=== PATIENT | male | born 1965 | race Caucasian/White ===

== ENCOUNTER → 2019-05-06 06:28 | Day surgery (SDC) | payer BC ==
[~2019-05-06 06:28] MED LIST: Atracurium* 10 MG/ML 10 ML VIAL ONE; Buffered Lidocaine 1% SYRIN* 1 ML/SYRINGE INTRADERM ONE; Bupivacaine 0.5% W/EPI SDV* 10 ML VIAL INJ ONE; Dexamethasone IV* 4 MG/ML 1 ML (4 MG) IV SLOW PU ONE; Dexamethasone IV* 4 MG/ML 1 ML (4 MG) ONE; DiMENhydriNATE IV* 50 MG/ML VIAL IV PUSH PRN; Famotidine IV* 10 MG/ML 2 ML (20 mg) IV ONE; Famotidine IV* 10 MG/ML 2 ML (20 mg) ONE; HYDROmorphone INJ1* 1 MG/ML SYRINGE ONE; Ketorolac INJ* 30 MG/ML 1 ML VIAL ONE; Lactated Ringers 1000 ML Bag* 1,000 ML IV SCH; Lidocaine 2% PF * 5 ML VIAL ONE; Midazolam* 1 MG/ML 5 ML VIAL (5 MG) ONE; Naloxone* 0.4 MG/ML 1 ML VIAL IV PRN; Ondansetron INJ* 2 MG/ML VIAL IV PRN; Ondansetron INJ* 2 MG/ML VIAL ONE; Phenylephrine 10 MG/ML VIAL* 1 ML VIAL ONE; Propofol* 10 MG/ML 20 ML BTL ONE; ceFAZolin 2 GM in NS PREMIX(*) 2 GM/100 ML BAG IVPB ONE; fentaNYL* 50 MCG/ML 2 ML VIAL (100 MCG VIAL) ONE; fentaNYL* 50 MCG/ML 5 ML VIAL (250 MCG VIAL) ONE; oxyCODONE/Acetamin 5/325 MG* TAB ONE
[2019-05-06] MEDS: HYDROmorphone INJ1* 1 MG/ML SYRINGE IV PRN ×5 (11:40→12:00)
[2019-05-06] MEDS: oxyCODONE/Acetamin 5/325 MG* TAB PO PRN ×2 (11:42→11:59)
[2019-05-06] MEDS: fentaNYL* 50 MCG/ML 2 ML VIAL (100 MCG VIAL) IV PRN ×3 (12:10→12:33)
[2019-05-06 13:08] VITALS: BP 135/80
--- NOTE | 2019-05-07 15:59 | OP ---
OPERATIVE REPORT: DATE OF OPERATION: 05/06/19 DATE OF : 67 SURGEON: Benigno Lundberg MD TRY ON BASTER: DANIS Robles A physician community program assistant was required for the length of the procedure for assistance with patient positi oning, retraction, instrumentation, and closure. ANESTHESIOLOGIST: Dr. Rios. ANESTHESIA: General anesthesia, local anesthesia with 20 cc of Marcaine 0.5% with epinephrine. PRE-OP DIAGNOSIS: Left elbow triceps tendon tear. POST-OP DIAGNOSIS: Left elbow triceps tendon tear. OPERATIVE PROCEDURE: Open repair of left elbow distal triceps tendon tear. ANTIBIOTICS: Ancef 2 g IV. IV FLUIDS: 2000 cc of crystalloid. BCDO-XP-TAKI TIME: 85 minutes. This was longer than average because of the tightness of this patien t's repair. TOURNIQUET TIME: 87 minutes left upper arm tourniquet at 250 mmHg. SPECIMENS: None. IMPLANTS: Mitek Gryphon double loaded suture anchors x2. COMPLICATIONS: None. ESTIMATED BLOOD LOSS: Minimal. IMAGING: None. INDICATIONS FOR PROCEDURE: The patient is a 53-year-old man, avid weightlifter, who injured his left elbow playing volleyball on 04/11/19, almost 1 month preoperatively. The patient saw several doctors and eventually arrived to my clinic. MRI showed a high-grade tear of the left elbow triceps tendon and the patient opted for surgery. The patient and I discussed risks and potential complications of surgery. We discussed much of the a natomy of the triceps as well as the surgery, technical aspects of it. We spoke about postoperative recovery and limitations and timeline of recovery. DESCRIPTION OF PROCEDURE: In preoperative holding, the patient signed a written consent. Operative extremity was marked in preoperative holding. The patient was taken back to the operating room and p laced supine on operating room table. The patient was sedated and intubated. There were some anesthesia concerns at first. The patient's blood pressure was low and so some fluid resuscitation as well as vasopressors were provided to improve the patient's vitals. Once the patie nt was deemed to be stable, we converted the patient to a lateral decubitus position. The patient was placed in a lateral decubitus position with an axillary roll placed. All bony promin ences padded. Meng bag was hardened. A Mike upper arm positioner was placed and the patient's arm was draped freely over it. A nonsterile tourniquet was placed about the proximal left upper arm. T he left upper extremity was prepped and draped. Surgical time-out performed, formally. Esmarch was applied and the tourniquet was elevated. I made a skin incision. Midline posterior, although curved laterally around the tip of the olecranon . Dissected down to fascial layer. Incised fascial layer both proximal and distal to the olecranon tip. Immediately encountered the ruptured triceps tendon. It was remarkable for several reasons. One, it was very large and robust with excellent quality tissue. This was not surprising given how muscular this patient is. It was also very retracted and not especially mobile. I freed up the triceps central tendon proximally and distally using safe digital dissection. I remov ed a bony fragment from the distal tendon. I placed an Allis grasper followed by a traction suture i n the tendon. The tendon could be mobilized distally, but only with significant pulling force. There was still a stump of triceps tendon tissue attached to the olecranon. This was a small stump. This was removed sharply. This exposed nicely the triceps tendon footprint on the olecranon. The ulnar nerve was visualized and was not dissected near. I dissected distally along bone releasing some fascia just medial and lateral to the proximal ulna. I next prepared the olecranon. I debrided with a rongeur, curette, and griffin. I next drilled my tunn els in the distal aspect of the footprint. I placed passing suture. I next placed in the more proxi mal aspect of the footprint 2 Mitek Gryphon suture anchors, each double loaded. I next addressed the triceps tendon. I freshened up the end of the tendon just with a rongeur, light ly to remove fibrous tissue and no tendon. Again, I noted that even with a traction stitch, the tric eps tendon could only be brought to the olecranon with the elbow essentially fully extended. With th e elbow flexed 90 degrees or even 45 degrees, the distal tendon sat significantly proximally to the o lecranon. This told me that this patient is clearly going to require postoperative immobilization an d significant elbow extension. I briefly even considered utilizing allograft tissue to supplement th e repair, to close the gap. However, given concerns about both strength and infection with allograft, I decided not to incorporate an Achilles allograft to bridge the defect. I placed 2 whipstitch sutures in the triceps, Krackow type. One I placed using FiberWire #2 suture a nd the second I placed using FiberWire #5 suture. I then placed with a free needle the sutures from the Mitek Gryphon suture anchors. I placed my sutures through bone tunnels. The elbow was fully extended. This brought the tendon mellissa natalia to bone. I tied these stitches. The knots were tucked laterally deep to fascia. I next tied my stitches from the Mitek Gryphon suture anchors. Three of these stitches were horizontal mattress an d the third was a simple stitch. The triceps tendon maintained itself in its position comfortably wi th the elbow in 0 to 20 or so degrees of flexion. I did not want to flex the elbow significantly mor e than that for a fear of injury to the repair. However, the repair certainly had a large footprint and I was happy with that. Closure of the central tendon to some surrounding triceps muscle and fascia was performed with figure -of-eight and running stitches using Ethibond 1 suture. I then closed fascia both proximally and dis tally using [id number]-xp-mrzyl stitches using Vicryl 0 suture. Some soft tissue about the olecranon bur sa I was able to tie over the footprint making none of those permanent suture knots exposed, which wa s especially nice. A nice fascial closure along the length of the incision. Closure of the subcutaneous tissue with buried simple stitches using Vicryl 2-0 suture. Closure of t he skin with a running stitch using nylon 3-0 suture. Local anesthesia, 20 cc placed in the subcutan eous tissue about the skin incision. Xeroform, 4x4s, ABDs, sterile Webril. An elbow splint was then applied. I placed a posterior long arm splint slab followed by a sugar-tong slab followed by an anterior long arm splint slab. These were placed with the elbow in approximatel y 15 degrees of elbow flexion. The splint was overwrapped with an Thien bandage. The patient was awakened, extubated, and transferred to the PACU. DISPOSITION: The patient was sent home with Percocet as needed for pain control and Keflex for 7 day s for infection prophylaxis. I gave the patient the option of having a clinic appointment within the first week postoperative if the patient wanted to get converted to an elbow brace, hinged, before hi s typical postoperative appointment at 10 to 14 days postoperative. The patient told me he would lik e to come in early, and if so, we will convert the patient to a hinged elbow brace at that appointmen t. I anticipate that this patient will take a little bit longer to regain his full range of motion g iven the amount of elbow extension required to anatomically reduce his triceps tendon. Difficult to know why the triceps had become so rigid and retracted. It may be because a month had passed since t he injury, but it might alternatively just be due to the density of this patient's particularly muscu lar triceps. [id number]/[facility] #: [id number]
== END | disposition home or self-care (01) ==
LOC: OR 06:28
PROVIDERS: ATTEND Orthopaedic Surgery
DX: S46.312A Strain of muscle, fascia and tendon of triceps, left arm, initial encounter (principal); X50.0XXA Overexertion from strenuous movement or load, initial encounter; Y93.68 Activity, volleyball (beach) (court); Y92.318 Other athletic court as the place of occurrence of the external cause; I10 Essential (primary) hypertension; F41.8 Other specified anxiety disorders; Z85.828 Personal history of other malignant neoplasm of skin
CPT/HCPCS: A9270-GY; J0690; J1100; J1170; J1885; J2250; J2405; J2704; J3010